=== PATIENT | male | born 1935 | race Caucasian/White ===

== ENCOUNTER → 2017-12-26 | Outpatient (CLI) | payer MEDICARE, OTHER | END | disposition home or self-care (01) | LOC: RAD 09:19 | DX: M25.512 Pain in left shoulder (principal); M54.2 Cervicalgia | CPT/HCPCS: 72040; 73030 ==

== ENCOUNTER 2019-03-09 06:12 | Day surgery (SDC) | payer MEDICARE, OTHER ==
[2019-03-09] MEDS ORDERED: PROPOFOL 200 MG INJ (07:00)
[2019-03-09] MEDS ORDERED: PROPOFOL 40 ML (08:06)
[2019-03-09] MEDS ORDERED: LIDOCAINE 100 MG SYRINGE (08:06)
== END 2019-03-09 11:36 | disposition home or self-care (01) ==
LOC: GIL 06:12
DX: K64.8 Other hemorrhoids (principal); K63.89 Other specified diseases of intestine; I25.10 Atherosclerotic heart disease of native coronary artery without angina pectoris
CPT/HCPCS: 45378